=== PATIENT | female | born 1980 | race Caucasian/White ===

== ENCOUNTER 2016-09-21 13:28 | Emergency (ER) | payer SELFPAY ==
[2016-09-21 14:06] LABS: Bilirubin Negative (Negative); Blood, Urine Small (Negative); Glucose, Urine (Dipstick) Negative (Negative); Ketone, Urine Trace mg/dL (Negative); Nitrite Negative (Negative); Protein, Urine (Dipstick) 30 mg/dL (Neg-Trace); Urobilinogen 0.2 mg/dL (0.2-1.0)
[2016-09-21 14:18] LABS: Bacteria/HPF 4+ HPF (None Seen); Hyaline Casts/LPF NONE SEEN LPF (0-3 Hyaline); Oval Fat Bodies/HPF None Seen HPF (None Seen); RBC/HPF 0-3 HPF (0-3); Renal Epithelial None Seen HPF (0-3); Sperm/HPF None Seen HPF (None Seen); Squamous Epithelial 21-50 HPF (0-3); Transitional Epithelial NONE SEEN HPF (0-3); Trichomonas/HPF None Seen HPF (None Seen); WBC/HPF 21-50 HPF (0-3); Yeast-All Forms None Seen HPF (None Seen)
--- NOTE | 2016-09-21 14:46 | PICIS ---
[facility] EMERGENCY RECORD TRIAGE (SatSep 21, 2016 13:41 KMOR) TRIAGE NOTES: Nausea and diarrhea and chills for a couple days. (SatSep 21, 2016 13:41 KMOR) PATIENT: NAME: Elysia Villatoro, AGE: 36, GENDER: female, : Sun 1980, TIME OF GREET: SatSep 21, 2016 13:29, PREFERRED LANGUAGE: Luxembourgish, ETHNICITY: Not or , ECODE BILLING MAP: [facility], SSN: [id number], Zip Code: [address], KG WEIGHT: 88.45, PHONE: , , , PERSON ID: [id number], PAYMENT: S[employer] Self Pay, PCP: none. (SatSep 21, 2016 13:41 KMOR) COMPLAINT: Nausea alone. (SatSep 21, 2016 13:41 KMOR) ADMISSION: URGENCY: 4 Non Urgent, ADMISSION SOURCE: Home, TRANSPORT: CAR, BED: ER -03. (SatSep 21, 2016 13:41 KMOR) ASSESSMENT: Assessment: A&OX4. RR EVEN AND UNLABORED., Symptoms began 2 hours ago. (13:44 KMOR) PAIN: No complaint of pain. (13:44 KMOR) TRIAGE SCREENING: Patient denies suicidal ideation, Patient denies presence of domestic violence. (13:44 KMOR) LMP: Last menstrual period: 09/10/2016. (13:44 KMOR) PROVIDERS: TRIAGE NURSE: Reshma Card RN. (SatSep 21, 2016 13:41 KMOR) PREVIOUS VISIT ALLERGIES: No Known Allergies, No Known Drug Allergies. (SatSep 21, 2016 13:41 KMOR) No Known Allergies, No Known Drug Allergies. (13:44 KMOR) KNOWN ALLERGIES No Known Allergies No Known Drug Allergies CURRENT MEDICATIONS (13:42 KMOR) None VITAL SIGNS (13:49 KMOR) VITAL SIGNS: BP: 105/70, Pulse: 81, Resp: 16, Temp: 98.6 (Oral), Pain: 0, O2 sat: 97 on Room Air, Time: 09/21/2016 13:49. NURSING ASSESSMENT: ABDOMEN (13:52 KMOR) CONSTITUTIONAL: Patient arrives ambulatory, Gait steady, History obtained from patient, Patient appears comfortable, Patient cooperative, Patient alert, Oriented to person, place and time, Skin warm, Skin dry, Skin normal in color, Mucous membranes pink, Mucous membranes moist, Patient is well-groomed, Patient complains of Nausea and diarrhea, Nausea and diarrhea x3 days, Reports boyfriend is also sick. No vomiting. PAIN: Patient rates pain as 0 out of 10. ABDOMEN: Abdomen assessment findings include abdomen symmetrical, Abdomen soft, non-tender, Bowel sound normal, Associated with nausea, no associated vomiting, Associated with diarrhea, loose. LMP: First day last menstrual period, Last period started on &a-1R&a+25V*p+0X*y0781H*c202B*c15G*c2P*p-0X&a-25V&a+1R Name: Elysia Villatoro : 1980 F36 MedRec: [id number] AcctNum: [id number] Prepared: SatSep 21, 2016 15:21 by Interface Page 1 of 5 pMD [facility] EMERGENCY RECORD 09/10/2016 13:53. GENITOURINARY FEMALE: no associated urinary complaints. NOTES: Patient tolerated procedure well. NURSING PROCEDURE: DISCHARGE NOTE (14:25 AHOO) DISCHARGE: Patient discharged to home, ambulating without assistance, family driving, accompanied by //partner, Summary of Care printed/ provided, Transition record given to patient, Discharge instructions given to patient, Prescriptions given and instructions on side effects given, Above person(s) verbalized understanding of discharge instructions and follow-up care, Patient treated and evaluated by physician. ORDER DETAILS Order Name: Test, Urine (BHCG), Status: Active, Time: 13:48 09/21/2016, User: [email or web address], - Ordered for: MD Fuentes Jason, - Entered by: BERNARD Card Krista - SatSep 21, 2016 13:48, - Quantity: 1, Order Name: Urinalysis w/ Rflx Microscopic, Status: Active, Time: 13:48 09/21/2016, User: [email or web address], - Ordered for: MD Fuentes Jason, - Entered by: BERNARD Card Krista - SatSep 21, 2016 13:48, - Quantity: 1. HPI NAUSEA/VOMITING/DIARRHEA (14:07 JJAC) CHIEF COMPLAINT: Patient presents for evaluation of nausea, Patient presents for evaluation of diarrhea. HISTORIAN: History provided by patient, 36F presents with complaints of diarrhea for the past two days, associated with nausea without vomiting. Denies abdominal pain, fever, chills, urinary complaints, or back pain. Denies travel. LOCATION FEMALE: No localizing symptoms. TIME COURSE: Sudden onset of symptoms. ASSOCIATED WITH FEMALE: Associated with diarrhea, Associated with nausea, No associated vaginal discharge. ROS (14:08 [facility]) CONSTITUTIONAL: Negative constitutional review of systems, Historian denies chills, denies fever. EYES: Negative eye review of systems, Historian denies eye pain, denies vision changes. ENT: Negative ears, nose, throat review of systems, Historian denies rhinorrhea, denies sore throat, denies voice changes. CARDIOVASCULAR: Negative cardiovascular review of systems, Historian denies chest pain, denies palpitations. RESPIRATORY: Negative respiratory review of systems, Historian denies cough, denies shortness of breath. GI: Historian reports diarrhea, reports &a-1R&a+25V*p+0X*l0217T*c202B*c15G*c2P*p-0X&a-25V&a+1R Name: lEysia Villatoro : 1980 F36 MedRec: [id number] AcctNum: [id number] Prepared: SatSep 21, 2016 15:21 by Interface Page 2 of 5 pMD [facility] EMERGENCY RECORD nausea. GENITOURINARY FEMALE: Negative genitourinary review of systems, Historian denies dysuria, denies frequency. MUSCULOSKELETAL: Negative musculoskeletal review of systems, Historian denies back pain, denies fall, denies injury. SKIN: Negative skin review of systems, Historian denies rash, denies skin changes. NEUROLOGIC: Negative neurologic review of systems, Historian denies headache, denies mental status changes, denies paralysis, denies paresthesias, denies sensory changes. HEMO/LYMPHATIC: Normal hematologic/lymphatic system review, Historian denies abnormal blood clotting. ALLERGIC/IMMUNOLOGIC: Normal allergy/immunologic system review, Historian denies frequent infections. PAST MEDICAL HISTORY (13:44 KMOR) MEDICAL HISTORY: No past medical history, Notes: Pt. denies any PMH., Flu vaccine up to date, Tetanus immunization up to date, Pneumococcal vaccine not up to date. FEMALE SURGICAL HISTORY: tubal ligation. PSYCHIATRIC HISTORY: No previous psychiatric history, Notes: Pt denies. SOCIAL HISTORY: Lives at home, alone, Patient drinks socially, Patient denies drug use, Patient currently uses tobacco, smokes cigarettes. FAMILY HISTORY: No known family hisotry. PHYSICAL EXAM (14:08 [facility]) CONSTITUTIONAL: Vital signs reviewed, Patient afebrile, Pulse normal, Blood pressure normal, Respiratory rate normal, Patient appears non toxic, Patient appears pain free, Patient alert and oriented to person, place and time. HEAD: Head exam normal, Head exam included findings of head atraumatic, normocephalic. EYES: Eye exam normal, Eye exam included findings of eyelids normal to inspection, Pupils equally round and reactive to light, Extraocular muscles intact, no nystagmus. ENT: ENT exam normal, Ear exam normal, external ear normal, tympanic membranes normal, no bleeding, Pharynx exam normal, Uvula exam normal, Tonsil exam normal, Mouth exam normal, mucous membranes moist, teeth normal. NECK: Neck exam normal, Neck exam included findings of normal range of motion, Trachea midline, no meningeal signs, no cervical adenopathy, no tenderness. RESPIRATORY CHEST: Respiratory and chest exam normal, Respiratory exam included findings of no respiratory distress, Breath sounds clear. CARDIOVASCULAR: Cardiovascular assessment normal, Cardiovascular exam included findings of heart rate regular rate and rhythm, Heart sounds normal. &a-1R&a+25V*p+0X*h1294O*c202B*c15G*c2P*p-0X&a-25V&a+1R Name: Elysia Villatoro : 1980 F36 MedRec: [id number] AcctNum: [id number] Prepared: SatSep 21, 2016 15:21 by Interface Page 3 of 5 pMD [facility] EMERGENCY RECORD ABDOMEN FEMALE: Abdominal exam included findings of abdomen nontender, Bowel sounds normal, no distension, no mass, no pulsatile masses, no peritoneal signs, no rigidity, no guarding, no rebound, Rovsing's sign absent. BACK: Back exam normal, Back exam included findings of normal inspection, range of motion normal, no tenderness. UPPER EXTREMITY: Upper extremity exam normal, Upper extremity exam included findings of inspection normal, Range of motion normal, Motor strength normal, Sensation intact, Radial pulse normal. LOWER EXTREMITY: Lower extremity exam normal, Lower extremity exam included findings of inspection normal, Range of motion normal, Motor strength normal, Sensation intact, Posterior tibial pulse normal, Pedal pulse normal. NEURO: Neuro exam normal, Neuro exam findings include patient oriented to person, place and time, Speech normal, Gait normal, Cranial nerves intact, no focal motor deficits, no focal sensory deficits. SKIN: Skin exam normal, Skin exam included findings of skin warm, dry, and normal in color, no rash. PSYCHIATRIC: Psychiatric exam normal, Normal affect. EVENTS TRANSFER: Triage to Emergency Emergency Room -03. (SatSep 21, 2016 13:41 KMOR) Removed from Emergency Emergency Room -03. (14:30 AHOO) DOCTOR NOTES (14:07 [facility]) TEXT: patient presented with diarrhea with associated nausea, but without other concerning findings. Well appearing, non toxic, no concern for intraabdominal process such as appendicitis, obstruction, or cholecystitis. Appropriate for outpatient management and follow up. UTI noted on UA. Abx started. PATIENT STATUS: Patient's status is unchanged since arrival to emergency department. PATIENT PLAN: The patient will be discharged. DATA REVIEWED: Lab data reviewed. PROBLEM LIST No recorded problems DIAGNOSIS (14:22 [facility]) FINAL: PRIMARY: UTI, ADDITIONAL: diarrhea. DISPOSITION PATIENT: Disposition Type: Discharge, Disposition: *Discharge Home. (14:22 [facility]) Patient left the department. (14:30 [facility]) INSTRUCTION (14:23 [facility]) &a-1R&a+25V*p+0X*b2186V*c202B*c15G*c2P*p-0X&a-25V&a+1R Name: Elysia Villatoro : 1980 F36 MedRec: [id number] AcctNum: [id number] Prepared: SatSep 21, 2016 15:21 by Interface Page 4 of 5 pMD [facility] EMERGENCY RECORD DISCHARGE: UTI CYSTITIS FEMALE ADULT, DIARRHEA, VIRAL (6Y-ADULT). SPECIAL: Drink lots of water. return to the ED if you develop worsening abdominal pain. PRESCRIPTION Zofran ODT: TABLET, RAPID DISSOLVE : 4 mg : ORAL : Quantity: 4 Unit: mg Route: ORAL Schedule: every 8 hours PRN Dispense: 6 May substitute. Refills: No Refills . (14:00 [facility]) NOTES: Take as needed for nausea or vomiting. One refill authorized No refills. (14:00 [facility]) Bactrim DS: TABLET : 800 mg-160 mg : ORAL : Quantity: 1 Unit: tab(s) Route: ORAL Schedule: 2 times a day (before meals) Dispense: 10 May substitute. Refills: No Refills . (14: [facility]) NOTES: No refills. (14:22 [facility]) IMAGING (14:28 [facility]) *DISCHARGE INSTRUCTIONS RECEIPT: Image captured from scanner. *SUPPLY CHARGE SHEET: Image captured from scanner. ADMIN (15:12 [facility]) DIGITAL SIGNATURE: MD Fuentes Jason. Frost: [facility]=JULES [place], November [facility]=MD Fuentes Jason KMOR=[place], RN, Reshma &a-1R&a+25V*p+0X*y3004K*c202B*c15G*c2P*p-0X&a-25V&a+1R Name: Elysia Villatoro : 1980 F36 MedRec: [id number] AcctNum: [id number] Prepared: SatSep 21, 2016 15:21 by Interface Page 5 of 5 pMD MTDD
--- NOTE | 2016-09-21 14:49 | ERRECORD ---
[facility] EMERGENCY RECORD HPI NAUSEA/VOMITING/DIARRHEA (14:07 [facility]) CHIEF COMPLAINT: Patient presents for evaluation of nausea, Patient presents for evaluation of diarrhea. HISTORIAN: History provided by patient, 36F presents with complaints of diarrhea for the past two days, associated with nausea without vomiting. Denies abdominal pain, fever, chills, urinary complaints, or back pain. Denies travel. LOCATION FEMALE: No localizing symptoms. TIME COURSE: Sudden onset of symptoms. ASSOCIATED WITH FEMALE: Associated with diarrhea, Associated with nausea, No associated vaginal discharge. ROS (14:08 [facility]) CONSTITUTIONAL: Negative constitutional review of systems, Historian denies chills, denies fever. EYES: Negative eye review of systems, Historian denies eye pain, denies vision changes. ENT: Negative ears, nose, throat review of systems, Historian denies rhinorrhea, denies sore throat, denies voice changes. CARDIOVASCULAR: Negative cardiovascular review of systems, Historian denies chest pain, denies palpitations. RESPIRATORY: Negative respiratory review of systems, Historian denies cough, denies shortness of breath. GI: Historian reports diarrhea, reports nausea. GENITOURINARY FEMALE: Negative genitourinary review of systems, Historian denies dysuria, denies frequency. MUSCULOSKELETAL: Negative musculoskeletal review of systems, Historian denies back pain, denies fall, denies injury. SKIN: Negative skin review of systems, Historian denies rash, denies skin changes. NEUROLOGIC: Negative neurologic review of systems, Historian denies headache, denies mental status changes, denies paralysis, denies paresthesias, denies sensory changes. HEMO/LYMPHATIC: Normal hematologic/lymphatic system review, Historian denies abnormal blood clotting. ALLERGIC/IMMUNOLOGIC: Normal allergy/immunologic system review, Historian denies frequent infections. PAST MEDICAL HISTORY (13:44 KMOR) MEDICAL HISTORY: No past medical history, Notes: Pt. denies any PMH., Flu vaccine up to date, Tetanus immunization up to date, Pneumococcal vaccine not up to date. FEMALE SURGICAL HISTORY: tubal ligation. PSYCHIATRIC HISTORY: No previous psychiatric history, Notes: Pt denies. SOCIAL HISTORY: Lives at home, alone, Patient drinks socially, Patient denies drug use, Patient currently uses tobacco, smokes cigarettes. FAMILY HISTORY: No known family hisotry. &a-1R&a+25V*p+0X*v8842D*c202B*c15G*c2P*p-0X&a-25V&a+1R Name: Elysia Villatoro : 1980 F36 MedRec: [id number] AcctNum: [id number] Prepared: SatSep 21, 2016 15:14 by Interface Page 1 of 3 pMD [facility] EMERGENCY RECORD KNOWN ALLERGIES No Known Allergies No Known Drug Allergies CURRENT MEDICATIONS (13:42 KMOR) None VITAL SIGNS (13:49 KMOR) VITAL SIGNS: BP: 105/70, Pulse: 81, Resp: 16, Temp: 98.6 (Oral), Pain: 0, O2 sat: 97 on Room Air, Time: 09/21/2016 13:49. PHYSICAL EXAM (14:08 [facility]) CONSTITUTIONAL: Vital signs reviewed, Patient afebrile, Pulse normal, Blood pressure normal, Respiratory rate normal, Patient appears non toxic, Patient appears pain free, Patient alert and oriented to person, place and time. HEAD: Head exam normal, Head exam included findings of head atraumatic, normocephalic. EYES: Eye exam normal, Eye exam included findings of eyelids normal to inspection, Pupils equally round and reactive to light, Extraocular muscles intact, no nystagmus. ENT: ENT exam normal, Ear exam normal, external ear normal, tympanic membranes normal, no bleeding, Pharynx exam normal, Uvula exam normal, Tonsil exam normal, Mouth exam normal, mucous membranes moist, teeth normal. NECK: Neck exam normal, Neck exam included findings of normal range of motion, Trachea midline, no meningeal signs, no cervical adenopathy, no tenderness. RESPIRATORY CHEST: Respiratory and chest exam normal, Respiratory exam included findings of no respiratory distress, Breath sounds clear. CARDIOVASCULAR: Cardiovascular assessment normal, Cardiovascular exam included findings of heart rate regular rate and rhythm, Heart sounds normal. ABDOMEN FEMALE: Abdominal exam included findings of abdomen nontender, Bowel sounds normal, no distension, no mass, no pulsatile masses, no peritoneal signs, no rigidity, no guarding, no rebound, Rovsing's sign absent. BACK: Back exam normal, Back exam included findings of normal inspection, range of motion normal, no tenderness. UPPER EXTREMITY: Upper extremity exam normal, Upper extremity exam included findings of inspection normal, Range of motion normal, Motor strength normal, Sensation intact, Radial pulse normal. LOWER EXTREMITY: Lower extremity exam normal, Lower extremity exam included findings of inspection normal, Range of motion normal, Motor strength normal, Sensation intact, Posterior tibial pulse normal, Pedal pulse normal. NEURO: Neuro exam normal, Neuro exam findings include patient oriented to person, place and time, Speech normal, Gait normal, &a-1R&a+25V*p+0X*d5682J*c202B*c15G*c2P*p-0X&a-25V&a+1R Name: Elysia Villatoro : 1980 F36 MedRec: [id number] AcctNum: [id number] Prepared: SatSep 21, 2016 15:14 by Interface Page 2 of 3 pMD [facility] EMERGENCY RECORD Cranial nerves intact, no focal motor deficits, no focal sensory deficits. SKIN: Skin exam normal, Skin exam included findings of skin warm, dry, and normal in color, no rash. PSYCHIATRIC: Psychiatric exam normal, Normal affect. DOCTOR NOTES (14:07 [facility]) TEXT: patient presented with diarrhea with associated nausea, but without other concerning findings. Well appearing, non toxic, no concern for intraabdominal process such as appendicitis, obstruction, or cholecystitis. Appropriate for outpatient management and follow up. UTI noted on UA. Abx started. PATIENT STATUS: Patient's status is unchanged since arrival to emergency department. PATIENT PLAN: The patient will be discharged. DATA REVIEWED: Lab data reviewed. PROBLEM LIST No recorded problems DIAGNOSIS (14:22 [facility]) FINAL: PRIMARY: UTI, ADDITIONAL: diarrhea. PRESCRIPTION Zofran ODT: TABLET, RAPID DISSOLVE : 4 mg : ORAL : Quantity: 4 Unit: mg Route: ORAL Schedule: every 8 hours PRN Dispense: 6 May substitute. Refills: No Refills . (14:00 [facility]) NOTES: Take as needed for nausea or vomiting. One refill authorized No refills. (14:00 [facility]) Bactrim DS: TABLET : 800 mg-160 mg : ORAL : Quantity: 1 Unit: tab(s) Route: ORAL Schedule: 2 times a day (before meals) Dispense: 10 May substitute. Refills: No Refills . (14: [facility]) NOTES: No refills. (14: [facility]) DISPOSITION PATIENT: Disposition Type: Discharge, Disposition: *Discharge Home. (14: [facility]) Patient left the department. (14:30 [facility]) Frost: OO=JULES [place], November [facility]=MD Gina, Yaniv KMOR=BERNARD Card, Reshma &a-1R&a+25V*p+0X*g5236C*c202B*c15G*c2P*p-0X&a-25V&a+1R Name: MauricekeiElysia dela cruz : 1980 F36 MedRec: [id number] AcctNum: [id number] Prepared: SatSep 21, 2016 15:14 by Interface Page 3 of 3 pMD MTDD
== END 2016-09-21 14:25 | disposition home or self-care (01) ==
LOC: BURERS 13:28
DX: N39.0 Urinary tract infection, site not specified (principal); R19.7 Diarrhea, unspecified
CPT/HCPCS: 81003; 81015; 81025; 99284